=== PATIENT | male | born 1955 | race Caucasian/White ===

== ENCOUNTER 2017-08-27 22:09 | Emergency (ER) | payer OTHER ==
[~2017-08-27] VITALS: Ht 182.9 cm; Wt 86.2 kg
[~2017-08-27 22:09] MED LIST: NOHOMEMEDICATIONS; VIAGRA100 MG PO
[2017-08-27 22:50] LABS: URINE BILIRUBIN NEGATIVE (Negative); URINE BLOOD TRACE (Negative); URINE CLARITY CLEAR; URINE COLOR YELLOW; URINE GLUCOSE-RANDOM NEGATIVE (Negative); URINE KETONES NEGATIVE (Negative); URINE LEUKOCYTES-REFLEX NEGATIVE (Negative); URINE NITRITE-REFLEX NEGATIVE (Negative); URINE PROTEIN NEGATIVE (Negative); URINE SPECIFIC GRAVITY <= 1.005 (1.005-1.030); URINE UROBILINOGEN 0.2 E.U./dl (0.2-1.0)
[2017-08-27] MEDS ORDERED: FLOMAX0.4 MG PO (22:59)
[2017-08-27 23:56] VITALS: BP 121/80
== END 2017-08-27 23:57 | disposition home or self-care (01) ==
LOC: M.ERS 22:09
PROVIDERS: Physician Assistant
DX: R33.9 Retention of urine, unspecified (principal)

== ENCOUNTER 2018-10-24 02:31 | Emergency (ER) | payer OTHER ==
[~2018-10-24] VITALS: Ht 182.9 cm; Wt 84.8 kg
[~2018-10-24 02:31] MED LIST changes: +FLOMAX0.4 MG PO
[2018-10-24 02:54] LABS: URINE BILIRUBIN NEGATIVE (Negative); URINE BLOOD NEGATIVE (Negative); URINE CLARITY CLEAR; URINE COLOR YELLOW; URINE GLUCOSE-RANDOM NEGATIVE (Negative); URINE KETONES NEGATIVE (Negative); URINE LEUKOCYTES-REFLEX NEGATIVE (Negative); URINE NITRITE-REFLEX NEGATIVE (Negative); URINE PROTEIN NEGATIVE (Negative); URINE UROBILINOGEN 0.2 E.U./dl (0.2-1.0)
[2018-10-24 03:15] VITALS: BP 167/92
== END 2018-10-24 03:26 | disposition home or self-care (01) ==
LOC: M.ERS 02:31
PROVIDERS: Emergency Medicine
DX: R33.9 Retention of urine, unspecified (principal)

== ENCOUNTER → 2019-03-17 | Outpatient (CLI) | payer OTHER ==
--- NOTE | 2019-03-17 13:30 | 2DMMODE ---
[place] [address] 2 D/M-MODE ECHOCARDIOGRAM Name: KAREN FRITZ Room: [facility]#: [id number] Admission: 03/17/19 Attend Phys: Aly Ash DO Discharge: Date of : 53 Date of Service: 03/17/19 1329 Report #: [id number] THIS REPORT FOR: //name// APPROVED REPORT Study performed: 03/17/2019 09:22:11 EXAM: Comprehensive 2D, Doppler, and color-flow Echocardiogram Patient Location: Out-Patient BSA: 2.05 HR: 64 bpm BP: 126/80 mmHg Other Information Study Quality: Good Indications Dizziness and Vertigo 2D Dimensions IVSd: 13.13 (7-11mm) LVOT Diam: 20.61 (18-24mm) LVDd: 44.32 mm PWd: 10.52 (7-11mm) Ascending Ao: 25.05 (22-36mm) LVDs: 28.71 (25-40mm) Aortic Root: 27.27 mm Volumes Left Atrial Volume (Systole) LA ESV Index: 18.40 mL/m2 Aortic Valve AoV Peak Floyd.: 1.03 m/s AO Peak Gr.: 4.27 mmHg LVOT Max P.60 mmHg AO Mean Gr.: 2.01 mmHg LVOT Mean P.12 mmHg LVOT Max V: 0.81 m/s AO V2 VTI: 18.15 cm LVOT Mean V: 0.47 m/s RANDELL (VTI): 2.90 cm2 LVOT V1 VTI: 15.80 cm Mitral Valve E/A Ratio: 1.04 MV Decel. Time: 252.78 ms MV E Max Floyd.: 0.51 m/s MV PHT: 73.31 ms MVA (PHT): 3.00 [place]2 [place] [address] 2 D/M-MODE ECHOCARDIOGRAM Name: KAREN FRITZ Room: [facility]#: [id number] Admission: 03/17/19 Attend Phys: Aly Ash DO Discharge: Date of : 53 Date of Service: 03/17/19 1329 Report #: [id number] TDI E/Lateral E': 4.64 E/Medial E': 6.38 Medial E' Floyd.: 0.08 m/s Lateral E' Floyd.: 0.11 m/s Pulmonary Valve PV Peak Floyd.: 1.01 m/s PV Peak Gr.: 4.12 mmHg Tricuspid Valve RAP Estimate: 5.00 mmHg TR Peak Gr.: 17.68 mmHg RVSP: 22.68 mmHg PA Pressure: 22.68 mmHg Left Ventricle The left ventricle is normal size. There is normal LV segmental wall motion. There is normal left ventricular wall thickness. Left ventricular systolic function is normal. The left ventricular ejection fraction is within the normal range. LVEF is 55-60%. The left ventricular diastolic function is normal. Right Ventricle The right ventricle is normal size. The right ventricular systolic function is normal. Atria The left atrium size is normal. The right atrium size is normal. Aortic Valve The aortic valve is normal in structure. No aortic regurgitation is present. There is no aortic valvular stenosis. Mitral Valve The mitral valve is normal in structure. Mild mitral regurgitation. No evidence of mitral valve stenosis. Tricuspid Valve The tricuspid valve is normal in structure. Mild tricuspid regurgitation. Pulmonic Valve The pulmonary valve is normal in structure. Trace pulmonic regurgitation[place] [address] 2 D/M-MODE ECHOCARDIOGRAM Name: KAREN FRITZ Room: [facility]#: [id number] Admission: 03/17/19 Attend Phys: Aly Ash DO Discharge: Date of : 53 Date of Service: 03/17/19 1329 Report #: [id number] The aortic root is normal in size. IVC is normal in size and collapses >50% with inspiration. Pericardium There is no pericardial effusion. <Conclusion> Left ventricular systolic function is normal. The left ventricular ejection fraction is within the normal range. <ELECTRONICALLY SIGNED> By: Jorge Navas MD, [facility] 03/17/19 1329 1329 Jorge Navas MD, [facility] /INF
== END ==
LOC: M.CRD 09:00
DX: I08.1 Rheumatic disorders of both mitral and tricuspid valves (principal); Z88.8 Allergy status to other drugs, medicaments and biological substances

== ENCOUNTER → 2019-04-08 | Outpatient (CLI) | payer OTHER ==
--- NOTE | 2019-04-11 13:21 | 24HR ---
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 sinus rhythm with sinus bradycardia and tachycardia 2. occasional pac with up to 7 beat runs of psvt 3. no diary submitted Electronically Signed On 04-11-2019 13:21:25 CDT by Jorge Navas [email or web address] <ELECTRONICALLY SIGNED> By: Jorge Navas MD, [facility] 04/11/19 1321 0756 0756 Jorge Navas MD, [facility] /EPI
== END ==
LOC: M.CRD 11:30
DX: I45.10 Unspecified right bundle-branch block (principal); R00.1 Bradycardia, unspecified

== ENCOUNTER 2020-03-08 01:30 | Emergency (ER) | payer OTHER ==
[~2020-03-08] VITALS: Ht 182.9 cm; Wt 83.9 kg
[2020-03-08 02:23] VITALS: BP 149/88
== END 2020-03-08 02:23 | disposition home or self-care (01) ==
LOC: M.ERS 01:30
DX: R33.9 Retention of urine, unspecified (principal)

== ENCOUNTER 2021-02-19 08:53 | Emergency (ER) | payer OTHER, MEDICARE ==
[~2021-02-19] VITALS: Ht 182.9 cm; Wt 85.3 kg
[2021-02-19 10:40] VITALS: BP 132/81
== END 2021-02-19 10:40 | disposition home or self-care (01) ==
LOC: M.ERS 08:53
DX: R33.9 Retention of urine, unspecified (principal)

== ENCOUNTER 2021-07-02 01:02 | Emergency (ER) | payer OTHER ==
[~2021-07-02] VITALS: Ht 182.9 cm; Wt 86.2 kg
[2021-07-02 02:04] LABS: URINE BILIRUBIN NEGATIVE (Negative); URINE BLOOD 3+ (Negative); URINE CLARITY CLEAR; URINE COLOR YELLOW; URINE GLUCOSE-RANDOM NEGATIVE (Negative); URINE KETONES TRACE (Negative); URINE LEUKOCYTES-REFLEX NEGATIVE (Negative); URINE NITRITE-REFLEX NEGATIVE (Negative); URINE PROTEIN NEGATIVE (Negative); URINE SPECIFIC GRAVITY 1.025 (1.005-1.030); URINE UROBILINOGEN 0.2 E.U./dl (0.2-1.0)
[2021-07-02 02:20] LABS: CASTS None Seen /LPF (None Seen); SQUAMOUS NONE SEEN /LPF (0-3)
[2021-07-02 02:21] VITALS: BP 134/68
[2021-07-02 02:21] LABS: BACTERIA-REFLEX None Seen /HPF (None Seen); CRYSTALS None Seen /LPF (None Seen); TRANSITIONAL EPITHEL CELL 0-3 Few /LPF (None Seen); URINE RBC >20 Many /HPF (0-2); URINE WBC-REFLEX None Seen /HPF (0-5)
[2021-07-02 02:36] LABS: ABSOLUTE EOSINOPHILS 0.1 thou/uL (0.0-0.7); ABSOLUTE LYMPHOCYTES 0.6 thou/uL (0.8-5.3); ABSOLUTE MONOCYTES 0.4 thou/uL (0.0-1.2); ABSOLUTE NEUTROPHILS 4.9 thou/uL (1.6-8.1); BASOPHILS 0.2 %; EOSINOPHILS 1.2 %; HEMATOCRIT 39.6 % (42.0-52.0); HEMOGLOBIN 13.2 gm/dL (14.0-18.0); LYMPHOCYTES 10.5 %; MCH 31.5 pg (26.0-34.0); MCHC 33.4 g/dL (28.0-37.0); MCV 94.1 fL (80.0-100.0); MONOCYTES 6.6 %; MPV 7.3 fl. (7.2-11.1); NUCLEATED RBCS 0 /100WBC; PLATELET COUNT* 206 thou/uL (150-400); POLYS 81.5 %; RBC 4.21 mil/uL (4.50-6.00); RDW-CV 13.5 % (10.5-14.5)
[2021-07-02 02:39] LABS: CALCIUM 8.3 mg/dL (8.5-10.1); CREATININE 0.7 mg/dL (0.6-1.3); POTASSIUM 3.6 mmol/L (3.5-5.1)
[2021-07-02 02:51] LABS: ALBUMIN 3.6 g/dL (3.4-5.0); TOTAL BILIRUBIN 0.6 mg/dL (<0.1-1.0); TOTAL PROTEIN 6.5 g/dL (6.4-8.2)
== END 2021-07-02 02:22 | disposition home or self-care (01) ==
LOC: M.ERS 01:02
PROVIDERS: Personal Emergency Response Attendant
DX: R33.9 Retention of urine, unspecified (principal); Z79.899 Other long term (current) drug therapy

== ENCOUNTER 2021-07-03 19:40 | Emergency (ER) | payer OTHER ==
[~2021-07-03] VITALS: Ht 182.9 cm; Wt 84.8 kg
[2021-07-03 21:00] VITALS: BP 138/98
== END 2021-07-03 21:00 | disposition home or self-care (01) ==
LOC: M.ERS 19:40
DX: R33.9 Retention of urine, unspecified (principal); Z79.899 Other long term (current) drug therapy